=== PATIENT | female | born 1995 | race Caucasian/White ===

== ENCOUNTER 2021-06-01 16:34 | Emergency (ER) | payer OTHER, SELFPAY ==
[2021-06-01 17:09] VITALS: BP 126/88; PULSE 73; RESP 18; TEMP 36.7; O2SAT 98; BMI 39.0
[2021-06-01 21:20] VITALS: O2SAT 97
[2021-06-01 21:23] VITALS: BP 125/79; PULSE 69; O2SAT 98
--- NOTE | 2021-06-01 21:24 | PC.NURSE ---
Pt states she was doing over head shoulder presses at the gym when she felt a pop in her back 4 weeks ago. has been getting worse. has seen a chiro who did XRs and diagnosed pt with slipped disc. Pt having harder time controlling her bowels. states she usually has a BM every 3-4 days and now its daily and she is having a harder time making it to the bathroom in time. ambulatory. states pain is predominantly in R back and down R buttock.
[2021-06-01 21:30] VITALS: PULSE 61; O2SAT 99
[2021-06-01 22:00] VITALS: PULSE 55; O2SAT 100
--- NOTE | 2021-06-01 22:07 | ED.BACK ---
HPI - Back Pain/Injury General Chief Complaint: Back Pain/Injury Stated Complaint: lower back pain Time Seen by Provider: 06/01/21 21:52 Source: patient Mode of arrival: Ambulatory Limitations: no limitations History of Present Illness HPI Narrative: This is a 26-year-old female comes emergency department with complaint of low back pain started about 3 weeks ago. Patient stated it started abruptly while she was doing press ups from a standing position and she was pushing weight over her head. Patient states she felt a sudden sharp pain on the right lower back. And she has continued to have symptoms since. Patient has radiate pain that radiates down the buttock and to the back of her knee. She has had some numbness and tingling. She does have movement but it is quite painful for her. She has not any fevers or chills. No chest pain or shortness of breath, no nausea or vomiting. No bowel or bladder incontinence but she does know it is very uncomfortable to try to pee, cough or urinate or sneeze. Patient did see a chiropractor about a week and half ago she did have x-rays at that time. She did attempt to set up with primary care at the [facility] but appointments are not available till July. Patient has been alternating Tylenol and ibuprofen with minimal improvement. She did have somewhat similar symptoms with a press but that had resolved after her . She denies any other major issues. No past back surgeries. No known drug allergies. Related Data Previous Rx's Medication Instructions Recorded meloxicam 7.5 mg tablet (Mobic) 7.5 mg PO BID #20 tab 06/01/21 prednisone 50 mg tablet 50 mg PO DAILY #5 tab 06/01/21 Allergies Allergy/AdvReac Type Severity Reaction Status Date / Time No Known Drug Allergies Allergy Verified 06/01/21 17:13 Review of Systems Review of Systems ROS Unobtainable: All systems reviewed & are unremarkable except as noted in HPI and below Patient History Social History Smoking Status: Never smoker Smoking Status: Never smoker Substance Use Type: does not use Exam Narrative Exam Narrative: GENERAL: Alert and oriented x three, female with BMI of 39 in [id number] distress. HEENT: Head normocephalic, atraumatic, EOMI, pupils reactive, face symmetric, moist mucous membranes NECK: Supple, full range of motion CARDIOVASCULAR: Regular rate and rhythm without murmurs, rubs or gallops. RESPIRATORY: Breath sounds equal bilaterally, no wheezes rales or rhonchi. ABDOMEN: Soft, nontender. Normoactive bowel sounds all 4 quadrants. No guarding or rebound, rigidity, no mass : No CVA tenderness bilaterally BACK: No cervical, thoracic or lumbar vertebral point tenderness. Patient has mildly decreased range of motion, patient is able to roll over and sit up on the bed but it does appear uncomfortable. Patient's gait is antalgic. Rectal exam is deferred. No saddle anesthesia. Muscle strength is 5/5 in lower extremities, cap refill less than 2 seconds bilateral lower extremities. Sensation is intact in the lower extremities. EXTREMITIES: Normal range of motion, no clubbing or edema. Neurovascularly intact NEUROLOGICAL: Cranial nerves II through XII grossly intact. Moving all extremities SKIN: Warm, dry, no petechiae, no rashes or lesions. Initial Vital Signs Initial Vital Signs: Vital Signs Temperature 98.0 F 06/01/21 17:09 Pulse Rate 73 06/01/21 17:09 Respiratory Rate 18 06/01/21 17:09 Blood Pressure 126/88 06/01/21 17:09 Pulse Oximetry 98 06/01/21 17:09 Course Orders Ordered: Discontinued Medications Ketorolac Tromethamine (Ketorolac 30 Mg/Ml Vial) 30 mg IM NOW ONE Stop: 06/01/21 22:18 Last Admin: 06/01/21 22:29 Dose: 30 mg Documented by: JOSE Prednisone (Prednisone 20 Mg Tablet) 60 mg PO NOW ONE Stop: 06/01/21 22:18 Last Admin: 06/01/21 22:29 Dose: 60 mg Documented by: JOSE Vital Signs Vital signs: Vital Signs - 8 hr 06/01/21 17:09 Temperature 98.0 F Pulse Rate 73 Respiratory Rate 18 Blood Pressure 126/88 Pulse Oximetry 98 MDM - Back Pain/Injury MDM Narrative Medical decision making narrative: This is a 26-year-old female comes in with acute onset of low back pain while lifting weights. Patient's does not have any red flag symptoms on exam. These were discussed and patient was given return precautions. Plan for patient to follow-up with primary care recheck. Discharge Plan Departure Patient Disposition: Home Clinical Impression: Lumbar back pain with radiculopathy affecting right lower extremity Instructions: DI for Back Pain With Sciatica Activity Restrictions/Additional Instructions: Follow-up with your physician for recheck. Included is referral for Orthopedic surgery if there not be able to see you for the next 1-2 months. Take pain medication as prescribed. Do not take other NSAIDs such as ibuprofen or Aleve with this medication. You may take Tylenol up to a 1000 mg every 8 hours with it. Take steroids daily until gone. Prescription sent to [facility] in [place] Please return for fevers, rapidly worsening or intractable pain, new numbness, weakness, loss of sensation, inability to walk, after having loss of bowel or bladder control, loss of sensation in the groin or other new or concerning symptoms. Prescriptions: New meloxicam [Mobic] 7.5 mg tablet 7.5 mg PO BID Qty: 20 RF: 0 prednisone 50 mg tablet 50 mg PO DAILY Qty: 5 RF: 0 Referrals: Lanny Nash MD [Physician] -
[2021-06-01] MEDS: predniSONE 20 MG TABLET 60 MG PO (22:29)
[2021-06-01] MEDS: KETOROLAC 30 MG/ML VIAL IM (22:29)
== END 2021-06-01 22:48 | disposition home or self-care (01) ==
PROVIDERS: Emergency Provider Emergency Medicine
DX: M54.5 Low back pain (principal); M54.16 Radiculopathy, lumbar region; X50.0XXA Overexertion from strenuous movement or load, initial encounter
CPT/HCPCS: 96372; 99283; J1885

== ENCOUNTER → 2025-05-01 14:17 | Outpatient (CLI) | payer OTHER, SELFPAY ==
[2025-05-01 14:47] LABS: Add Manual Diff / Slide Review NO; Basophils Absolute Auto 100 /uL (0-100); Basophils Percent Auto 0.7 % (0-2); Eosinophils Absolute Auto 100 /uL (0-450); Eosinophils Percent Auto 1.4 % (2-4); Hematocrit 39.5 % (36-46); Lymphocytes Absolute Auto 1600 /uL (1100-4500); Lymphocytes Percent Auto 23.1 % (25-40); Mean Corpuscular HGB Conc 32.9 % (30-36); Mean Corpuscular Hemoglobin 28.9 PG (26-34); Mean Corpuscular Volume 87.8 fL (80-100); Monocytes Absolute Auto 500 /uL (0-900); Neutrophils Absolute Auto 4600 /uL (1500-7000); Neutrophils Percent Auto 67.8 % (50-75); Platelet Count 231 X10^3/uL (150-400); Red Blood Cell Count 4.49 X10^6/uL (4.0-5.2); Red Cell Distribution Width 14.9 % (11.6-14.8); White Blood Cell Count 6.9 X10^3/uL (4.5-11.0)
[2025-05-01 15:17] LABS: Alanine Aminotransferase 22 IU/L (<35); Albumin 3.8 g/dL (3.5-5.0); Albumin Globulin Ratio 1.4 (1.0-2.8); Alkaline Phosphatase 56 U/L (38-126); Aspartate Aminotransferase 27 IU/L (14-36); BUN Creatinine Ratio 12.5 (6-22); Bilirubin Total 0.4 mg/dL (0.2-1.3); Blood Urea Nitrogen 10 mg/dL (7-17); Calcium 8.9 mg/dL (8.4-10.2); Carbon Dioxide 20 mmol/L (22-32); Chloride 107 mmol/L (98-107); Estimated Glomerular Filt Rate > 60 mL/min (>60); Globulin 2.7 g/dL (1.7-4.1); Glucose 76 mg/dL (70-99); HEMOLYSIS < 15 (0-50); Potassium 3.9 mmol/L (3.4-5.1); Sodium 135 mmol/L (137-145); Total Protein 6.5 g/dL (6.3-8.2)
[2025-05-01 15:47] LABS: Appearance Urine UA CLEAR; Bilirubin Urine UA NEGATIVE (NEGATIVE); Color Urine UA YELLOW; Glucose Urine UA NEGATIVE (Negative); Ketones Urine UA NEGATIVE (NEGATIVE); Leukocyte Esterase Urine UA NEGATIVE (NEGATIVE); Nitrite Urine UA NEGATIVE (Negative); Occult Blood Urine UA NEGATIVE (Negative); Protein Urine UA NEGATIVE (Negative); Specific Gravity Urine UA 1.025 (1.000-1.035); Urobilinogen Urine UA 0.2 E.U./dL (0.2)
[2025-05-01 16:20] LABS: Hepatitis B Surface Antigen NEGATIVE s/c (NEGATIVE); Rubella Antibody IgG 48.1 IU/mL (>15)
[2025-05-01 16:43] LABS: HIV 1 & 2 Ab/Ag 4th Gen Combo NEGATIVE (NEGATIVE); Hep C Virus Ab w/Reflex Quant NEGATIVE s/c (NEGATIVE)
[2025-05-01 17:01] LABS: Urine N gonorrhoeae NOT DETECTED
[2025-05-01 17:16] LABS: Urine Chlamydia NOT DETECTED
== END ==
LOC: LAB 14:18
PROVIDERS: Referring Provider Family Medicine; Visit Provider Family Medicine
DX: O99.210 Obesity complicating pregnancy, unspecified trimester (principal); O09.90 Supervision of high risk pregnancy, unspecified, unspecified trimester; E66.813 Obesity, class 3
CPT/HCPCS: 36415; 80053; 80055; 81003; 83036; 86787; 86803; 86850; 86900; 86901; 87086; 87389; 87491; 87591

== ENCOUNTER → 2025-05-08 09:11 | Outpatient (CLI) | payer OTHER, SELFPAY ==
[2025-05-08 10:04] LABS: Collection Time Urine 24 Hours; Protein (Total) Urine Random < 5 mg/dL (0-12); Total Protein 24 Hour Urine 52 mg/day (42-225); Total Volume Urine 1050 mL
== END ==
PROVIDERS: Referring Provider Family Medicine; Visit Provider Family Medicine
DX: O99.210 Obesity complicating pregnancy, unspecified trimester (principal); E66.813 Obesity, class 3
CPT/HCPCS: 84156

== ENCOUNTER 2025-05-08 09:32 | Emergency (ER) | payer OTHER, SELFPAY ==
[2025-05-08 09:50] VITALS: RESP 18; O2SAT 9
[2025-05-08 09:51] VITALS: BP 123/65; PULSE 87; O2SAT 98
[2025-05-08 10:00] VITALS: BP 112/56; PULSE 78; RESP 16; O2SAT 96
--- NOTE | 2025-05-08 10:00 | DI.US.S_ITS ---
PROCEDURE: US OB <= 14 WEEKS FETUS INDICATIONS: cramping, bloody discharge for 90 min 05/07/25 OUTSIDE/PRIOR DATING DATA: Last menstrual period (LMP): Uncertain. LMP-based estimated date of delivery (VANDANA): Not applicable. First dating scan (date and location): 05/01/2025. Estimated date of delivery (VANDANA) from first dating scan: 12/13/2025. TECHNIQUE: Real-time scanning was performed of the fetus and maternal pelvic organs, with image documentation. Endovaginal scanning was also performed to better visualize the fetus and maternal ovaries. COMPARISON: None. FINDINGS: Embryo: A single live intrauterine is seen. The measured heart rate is 182 beats per minute. The crown-rump length measures 2.2 cm, corresponding to an estimated gestational age of 8 weeks 6 days. It is too early for detailed anatomic assessment. By visual inspection, the amount of amniotic fluid is within normal limits. There is an apparent perigestational bleed seen measuring 2.4 x 1.1 x 1.3 cm. Maternal organs: Ovaries are within normal limits, with a likely corpus luteum on the left. IMPRESSION: A single live intrauterine is seen. Apparent perigestational hemorrhage present. tachycardia noted. Close clinical followup, with serial beta-hCG and serial ultrasound are recommended, if clinically appropriate. We strive to produce accurate, complete, and clear reports of imaging services. To assist us in improving patient care, this report was composed using standard report templates and voice recognition software. Therefore, it may contain abnormal punctuation, insertions and/or omissions. Occasional wrong-word or sound-alike substitutions may occur. Though we review the report and make efforts to correct it, we do recommend that the report be read carefully in proper context to recognize any text inaccuracies. Dictated by: Jd Dickson M.D. on 05/08/2025 at 9:55 Approved by: Jd Dickson M.D. on 05/08/2025 at 9:57
[2025-05-08 10:02] VITALS: BP 123/65; PULSE 92; RESP 16; TEMP 37.2; O2SAT 99; BMI 44.1
[2025-05-08 10:17] LABS: Ictotest Urine Negative (Negative)
--- NOTE | 2025-05-08 11:27 | ED.GENADULT ---
HPI - General Adult General Chief complaint: Vaginal Bleeding Stated complaint: Irregular bleeding - 8wks Time Seen by Provider: 05/08/25 09:52 Source: patient Mode of arrival: Ambulatory History of Present Illness HPI narrative: Otherwise healthy 29-year-old currently at 8 weeks 5 days, she should have ultrasound last week that confirmed intrauterine viability. After intercourse yesterday morning she noticed a bit of spotting and has continued to have some brownish discharge with mild cramping. Comes in for further evaluation Related Data Home Medications ?Medication ?Instructions ?Recorded ?Confirmed aripiprazole 5 mg tablet (Abilify) 5 mg PO DAILY 04/28/25 04/28/25 calcium 600 mg (as carbonate)-vit tab PO DAILY 04/28/25 04/28/25 D3 5 mcg (200 unit)-minerals tablet cholecalciferol (vitamin D3) 25 25 mcg PO DAILY 04/28/25 04/28/25 mcg (1,000 unit) capsule pantoprazole 40 mg tablet,delayed 40 mg PO BID 04/28/25 04/28/25 release vitamin-ferrous sulfate tab PO 04/28/25 04/28/25 27 mg iron-folic acid 0.8 mg tablet acetaminophen 325 mg tablet 650 mg PO Q6H PRN migraine headache 05/01/25 05/01/25 Previous Rx's ?Medication ?Instructions ?Recorded doxylamine succinate 25 mg tablet 25 mg PO BEDTIME PRN nausea and 05/01/25 vomiting #30 tabs pyridoxine (vitamin B6) 50 mg 50 mg PO TID #90 tabs 05/01/25 tablet Allergies Allergy/AdvReac Type Severity Reaction Status Date / Time lactose AdvReac Mild Abdominal Verified 05/08/25 10:02 Pain Patient History Medical History (Updated 05/08/25 @ 11:33 by Lolita Sweeney MD) Concussion Perforation of uterus Surgical History (Updated 04/28/25 @ 08:08 by Noy Talbot RN) [place] teeth extracted Family History (Updated 04/28/25 @ 08:14 by Noy Talbot, LEATHA) Grandmother Breast cancer Lung cancer Brain cancer Smoker Grandfather Diabetes mellitus Skin cancer Mother Osteoarthritis Father Heart attack Rheumatic fever Uncle Stroke Alcoholism Smoker Liver failure Social History marital status: unmarried,living together number of children: 2 (pt's child and s/o's child) household members: significant other and children lives independently: Yes caregiver/support person: Yes housing: condominium ([facility]) pets and animals: No education level: college (Associate's degree) occupational status: employed current occupational exposures/hazards: No jame/congregational: [employer] special jame needs: No travel history: recent (domestic only) seatbelt use: always helmet use: Yes water heater temp set < 120 deg: Yes working smoke detector in home: Yes fire extinguisher in home: No carbon monox detector in home: Yes firearms in home: No do you feel safe at home: Yes second hand exposure: Yes (s/o smoke/vapes) alcohol intake: former (very rarely when not ) substance use type: does not use during the past year weight has: increased > 10 lbs well-balanced diet: rarely or never daily servings fruits/ve-1 caffeine: Yes (occasional cup coffee, less than daily) Type(s) of exercise: walking, bicycling, resistance training and yoga Smoking Status: Never smoker Exam Initial Vital Signs Initial Vital Signs: Vital Signs Temperature 98.9 F 05/08/25 10:02 Pulse Rate 92 H 05/08/25 10:02 Respiratory Rate 16 05/08/25 10:02 Blood Pressure 123/65 05/08/25 10:02 Pulse Oximetry 99 05/08/25 10:02 Oxygen Delivery Method Room Air 05/08/25 10:02 General: Alert appropriate in no acute distress Respiratory: Able to speak in full sentences, no obvious respiratory distress Abdomen: No acute surgical abdomen, no reproducible tenderness with palpation in the lower pelvis. Pelvic exam is deferred today Skin: No obvious rashes, warm and dry Neurologic: Grossly intact no obvious asymmetries or abnormalities Psych: appropriate insight and affect, cooperative Course Orders Ordered: ED Orders 05/08/25 09:45 Ictotest Urine Stat 05/08/25 10:00 US OB <= 14 weeks fetus Stat Vital Signs Vital signs: Vital Signs - 8 hr 05/08/25 10:02 Temperature 98.9 F Pulse Rate 92 H Respiratory Rate 16 Blood Pressure 123/65 Pulse Oximetry 99 Oxygen Delivery Method Room Air Medical Decision Making Lab Data Labs: Lab Results 05/08/25 Range/Units 09:45 Ur Bilirubin Confirm Negative (Negative) Point of Care Testing Test Results Positive Urine Dip Bedside Urine Glucose Negative Bedside Urine Bilirubin + 1 Bedside Urine Ketone +/- 5 Urine Specific [place] 1.025 Bedside Urine Occult Blood - Negative Bedside Urine pH 6.0 Bedside Urine Protein +/- 15 Bedside Urine Urobilinogen - Negative Bedside Urine Nitrite - Negative Bedside Urine Leukocytes - Negative Esterase Point of care testing: Point of Care Testing Test Results Positive Urine Dip Bedside Urine Glucose Negative Bedside Urine Bilirubin + 1 Bedside Urine Ketone +/- 5 Urine Specific [place] 1.025 Bedside Urine Occult Blood - Negative Bedside Urine pH 6.0 Bedside Urine Protein +/- 15 Bedside Urine Urobilinogen - Negative Bedside Urine Nitrite - Negative Bedside Urine Leukocytes - Negative Esterase Imaging Data Ultrasound early : Radiologist's Impression: PROCEDURE: US OB <= 14 WEEKS FETUS INDICATIONS: cramping, bloody discharge for 90 min 05/07/25 OUTSIDE/PRIOR DATING DATA: Last menstrual period (LMP): Uncertain. LMP-based estimated date of delivery (VANDANA): Not applicable. First dating scan (date and location): 05/01/2025. Estimated date of delivery (VANDANA) from first dating scan: 12/13/2025. TECHNIQUE: Real-time scanning was performed of the fetus and maternal pelvic organs, with image documentation. Endovaginal scanning was also performed to better visualize the fetus and maternal ovaries. COMPARISON: None. FINDINGS: Embryo: A single live intrauterine is seen. The measured heart rate is 182 beats per minute. The crown-rump length measures 2.2 cm, corresponding to an estimated gestational age of 8 weeks 6 days. It is too early for detailed anatomic assessment. By visual inspection, the amount of amniotic fluid is within normal limits. There is an apparent perigestational bleed seen measuring 2.4 x 1.1 x 1.3 cm. Maternal organs: Ovaries are within normal limits, with a likely corpus luteum on the left. IMPRESSION: A single live intrauterine is seen. Apparent perigestational hemorrhage present. tachycardia noted. Close clinical followup, with serial beta-hCG and serial ultrasound are recommended, if clinically appropriate. We strive to produce accurate, complete, and clear reports of imaging services. To assist us in improving patient care, this report was composed using standard report templates and voice recognition software. Therefore, it may contain abnormal punctuation, insertions and/or omissions. Occasional wrong-word or sound-alike substitutions may occur. Though we review the report and make efforts to correct it, we do recommend that the report be read carefully in proper context to recognize any text inaccuracies. Dictated by: Jd Dickson M.D. on 05/08/2025 at 9:55 MDM Narrative Medical decision making narrative: 8-1/2 weeks, mild cramping, dark red bleeding. Ultrasound shows viable intrauterine fetus with concern for small perigestational bleed seen. Findings reviewed with the patient. Recommended pelvic rest for at least the next 3 days and follow up with her primary OB provider within the week. Discussed the potential for miscarriage but the significant probability that this will go on to be a healthy viable . Reasons to return to the emergency department are reviewed. There was no indication for blood work or hospitalization today she is safe for discharge Discharge Plan Departure Patient Disposition: Home Clinical Impression: Intrauterine , Vaginal bleeding in patient at less than 20 weeks gestation Instructions: DI for Vaginal Bleeding During Activity Restrictions/Additional Instructions: Thank you for coming in today Right now, your baby has a nice heartbeat, is in your uterus and seems to be doing well. There was a small amount of bleeding around the developing placenta, this is likely the brownish blood that you are noticing. This type of bleeding is very common. Any time there was bleeding and cramping in early we do worry about miscarriage. I suspect that you are going to do well, this bleeding will resolve and you will go on to have a healthy . I would recommend pelvic rest for at least the next 3 days. This means no fingers, toys, penis is in your vagina and no orgasms for the next 3 days. Minimize activity as much as possible. Please do schedule an appointment with your OB provider within the next week. If you have heavy or bright red bleeding, increasing cramping or new concerns please return to the emergency department Prescriptions: No Action pyridoxine (vitamin B6) 50 mg tablet 50 mg PO TID Qty: 90 3RF doxylamine succinate 25 mg tablet 25 mg PO BEDTIME PRN (Reason: nausea and vomiting) Qty: 30 3RF acetaminophen 325 mg tablet 650 mg PO Q6H PRN (Reason: migraine headache) vit-ferrous sulfat-FA 27 mg iron- 0.8 mg tablet PO pantoprazole 40 mg tablet,delayed release (DR/EC) 40 mg PO BID cholecalciferol (vitamin D3) 25 mcg (1,000 unit) capsule 25 mcg PO DAILY aripiprazole [Abilify] 5 mg tablet 5 mg PO DAILY calcium carbonate-vit D3-min 600 mg calcium- 200 unit tablet PO DAILY Referrals: ProviderNancy [Primary Care Provider, Family Practice] Stand Alone Forms: Patient Portal/API
== END 2025-05-08 11:52 | disposition home or self-care (01) ==
PROVIDERS: Emergency Provider Emergency Medicine
DX: O20.9 Hemorrhage in early pregnancy, unspecified (principal); Z3A.08 8 weeks gestation of pregnancy
CPT/HCPCS: 76801; 76817; 81003; 81025; 84156; 99282; 99283